=== PATIENT | male | born 1960 | race Caucasian/White ===

== ENCOUNTER 2021-07-25 12:52 | Outpatient (CLI) | payer MEDICARE | END 2021-07-25 12:53 | disposition home or self-care (01) | LOC: CSHCT 12:52 | PROVIDERS: ATTEND Nurse Practitioner Family | DX: I71.2 Thoracic aortic aneurysm, without rupture (principal); I70.0 Atherosclerosis of aorta; I25.10 Atherosclerotic heart disease of native coronary artery without angina pectoris | CPT/HCPCS: 71250 ==

== ENCOUNTER 2021-08-05 07:28 | Outpatient (CLI) | payer MEDICARE | END 2021-08-05 07:29 | disposition home or self-care (01) | LOC: CSHULT 07:28 | PROVIDERS: ATTEND Physician Assistant Medical | DX: R79.89 Other specified abnormal findings of blood chemistry (principal); K76.0 Fatty (change of) liver, not elsewhere classified | CPT/HCPCS: 76705 ==

== ENCOUNTER 2021-08-26 21:34 | Emergency (ER) | payer BC, MEDICARE ==
[2021-08-26 22:40] LABS: #Monocytes 0.4 10x3/uL (0.0-1.1); #Neutrophils 2.8 10x3/uL (1.5-8.4); %Lymphocytes 11.3 % (18.0-47.0); %Monocytes 9.7 % (0.0-10.0); %Neutrophils 78.4 % (40.0-75.0); Hemoglobin 11.6 g/dL (13.5-17.5); Mean Corpuscular HGB CONC 32.7 g/dL (32.0-36.0); Mean Corpuscular Hemoglobin 31.1 pg (27.0-33.0); Mean Corpuscular Volume 95.2 fl (81.2-95.1); Mean Platelet Volume 9.9 fl (7.4-10.4); Platelet Count 160 10x3/uL (150-450); RBC Distribution Width 11.9 % (11.5-14.5); Red Blood Cell (RBC) Count 3.73 10x6/uL (4.32-5.72); White Blood Cell (WBC) Count 3.6 10x3/uL (3.5-10.5)
[2021-08-26 22:48] LABS: ALT (SGPT) 34 U/L (8-55); AST (SGOT) 38 U/L (5-34); Albumin 3.8 g/dL (3.4-4.8); Alkaline Phosphatase 38 U/L (40-110); Anion Gap 15 mmol/L (10-20); BUN (Urea Nitrogen) 28 mg/dL (8.4-25.7); Bilirubin, Total 0.6 mg/dL (0.2-1.2); CK (CPK) 273 U/L (30-200); Calc. Creatinine Clearance 0 mL/min (70-130); Carbon Dioxide 21 mmol/L (23-31); Chloride 108 mmol/L (98-107); Lipase 28 U/L (8-78); Magnesium 2.1 mg/dL (1.6-2.6); Potassium 4.8 mmol/L (3.5-5.1); Protein, Total 6.8 g/dL (5.8-8.1); Sodium 139 mmol/L (136-145)
[2021-08-26 22:49] LABS: Glucose 41 mg/dL (80-115)
[2021-08-26 23:08] LABS: CKMB 1.7 ng/mL (0-6.6)
[2021-08-27 00:54] LABS: Troponin I 0.035 ng/mL (< 0.028)
[2021-08-27 17:09] LABS: SARS-CoV-2 PCR by NAA DETECTED (NotDetected)
== END 2021-08-27 01:50 | disposition home or self-care (01) ==
LOC: CSHERS 21:34
DX: U07.1 COVID-19 (principal); R53.1 Weakness; E11.649 Type 2 diabetes mellitus with hypoglycemia without coma; E78.5 Hyperlipidemia, unspecified; E78.00 Pure hypercholesterolemia, unspecified; I10 Essential (primary) hypertension; Z86.73 Personal history of transient ischemic attack (TIA), and cerebral infarction without residual deficits
CPT/HCPCS: 71045; 74176; 80053; 82550; 82553; 83690; 83735; 84443; 84484; 85025; 93005; U0003; U0005

== ENCOUNTER 2022-02-20 09:56 | Outpatient (CLI) | payer BC | END 2022-02-20 09:57 | disposition home or self-care (01) | LOC: CSHCT 09:56 | PROVIDERS: ATTEND Internal Medicine Cardiovascular Disease | DX: I77.810 Thoracic aortic ectasia (principal); I70.0 Atherosclerosis of aorta; I25.10 Atherosclerotic heart disease of native coronary artery without angina pectoris; I72.8 Aneurysm of other specified arteries | CPT/HCPCS: 71250 ==

== ENCOUNTER 2022-12-11 07:05 | Outpatient (CLI) | payer MEDICARE | END 2022-12-11 07:06 | disposition home or self-care (01) | LOC: CSHCT 07:05 | PROVIDERS: ATTEND Family Medicine | DX: R41.3 Other amnesia (principal); Z86.73 Personal history of transient ischemic attack (TIA), and cerebral infarction without residual deficits | CPT/HCPCS: 70450 ==